=== PATIENT | female | born 1990 | race Caucasian/White ===

== ENCOUNTER → 2016-10-08 | Outpatient (CLI) | payer BC ==
[2016-10-08 19:06] LABS: CHLAM PCR NOT DETECTED (NOT DETECT)
== END ==
LOC: LAB 17:20
PROVIDERS: ATTEND Nurse Practitioner Acute Care
DX: R10.30 Lower abdominal pain, unspecified (principal)
CPT/HCPCS: 87210; 87491; 87591

== ENCOUNTER → 2017-07-12 | Outpatient (CLI) | payer BC | LOC: LAB 17:37 | PROVIDERS: ATTEND Nurse Practitioner Acute Care | DX: N89.8 Other specified noninflammatory disorders of vagina (principal); R10.84 Generalized abdominal pain | CPT/HCPCS: 87086; 87210; 87491; 87591 ==

== ENCOUNTER → 2017-09-24 | Outpatient (CLI) | payer BC ==
[2017-09-24 18:41] LABS: HEMATOCRIT 38.9 % (36.0-47.0); HEMOGLOBIN 12.8 g/dL (12.0-15.5); MEAN CORPUSCULAR HEMOGLOBIN 26.6 pg (27.0-33.4); MEAN CORPUSCULAR HGB CONC 32.8 g/dL (32.0-36.0); MEAN CORPUSCULAR VOLUME 81 fl (80-97); PLATELET COUNT 310 10^3/uL (150-450); RED BLOOD COUNT 4.81 10^6/uL (3.72-5.28); RED CELL DISTRIBUTION WIDTH 13.7 % (11.5-14.0); WHITE BLOOD COUNT 8.2 10^3/uL (4.0-10.5)
[2017-09-24 18:58] LABS: ALANINE AMINOTRANSFERASE 25 U/L (9-52); ALBUMIN 4.1 g/dL (3.5-5.0); ALKALINE PHOSPHATASE 46 U/L (38-126); ANION GAP 9 (5-19); ASPARTATE AMINO TRANSFERASE 20 U/L (14-36); BILIRUBIN,DIRECT 0.4 mg/dL (0.0-0.4); BILIRUBIN,TOTAL 0.9 mg/dL (0.2-1.3); BLOOD UREA NITROGEN 10 mg/dL (7-20); CALCIUM 9.3 mg/dL (8.4-10.2); CARBON DIOXIDE 27 mmol/L (22-30); CHLORIDE 102 mmol/L (98-107); GLUCOSE 103 mg/dL (75-110); IRON(TIBC) 26.3 ug/dL (37-170); POTASSIUM 3.6 mmol/L (3.6-5.0); SODIUM 138.2 mmol/L (137-145)
[2017-09-24 19:12] LABS: FREE T4 (FREE THYROXINE) 1.22 ng/dL (0.78-2.19)
[2017-09-24 19:26] LABS: THYROID STIMULATING HORMONE 0.66 uIU/mL (0.47-4.68)
[2017-09-24 19:30] LABS: ERYTHROCYTE SEDIMENTATION RATE 12 mm/hr (0-20)
[2017-09-24 19:47] LABS: C-REACTIVE PROTEIN < 5.0 mg/L (<10.0)
[2017-09-26 09:46] LABS: THYROGLOBULIN AB <1.0 IU/mL (0.0-0.9)
[2017-09-26 13:43] LABS: ANTINUCLEAR ANTIBODIES Negative (Negative)
== END ==
LOC: OD 17:28
PROVIDERS: ATTEND Physician Assistant
DX: F41.9 Anxiety disorder, unspecified (principal); K20.8 Other esophagitis; K21.9 Gastro-esophageal reflux disease without esophagitis; R25.2 Cramp and spasm
CPT/HCPCS: 36415; 80053; 82306; 82607; 83540; 83550; 83735; 84439; 84443; 85027; 85652; 86038; 86140; 86800

== ENCOUNTER 2018-04-07 18:18 | Emergency (ER) | payer SELFPAY ==
[2018-04-07 19:13] VITALS: BP 112/79
== END 2018-04-07 22:20 | disposition left against medical advice (07) ==
LOC: ER 18:18
DX: Z53.21 Procedure and treatment not carried out due to patient leaving prior to being seen by health care provider (principal); R10.9 Unspecified abdominal pain

== ENCOUNTER 2018-04-08 10:03 | Emergency (ER) | payer BC, OTHER ==
[2018-04-08] MEDS ORDERED: ONDANSETRON HCL INJ/PF 4 MG/2 ML SDV IV ONE (10:41)
[2018-04-08] MEDS ORDERED: NORMAL SALINE 1000 ML 1,000 ML IV ONE (10:41)
[2018-04-08] MEDS ORDERED: MORPHINE SULFATE 10 MG/ML INJ IV ONE (10:41)
--- NOTE | 2018-04-08 10:43 | ER Document Report ---
ED Medical Screen (RME) - General Chief Complaint: Abdominal Pain Stated Complaint: ABDOMINAL PAIN Time Seen by Provider: 04/08/18 10:31 Notes: Patient is a 27-year-old female that presents to the emergency department for chief complaint of right lower quadrant abdominal pain. Patient started having periumbilical pain that has now localized to her right lower quadrant. She was seen in an urgent care yesterday and had a urine sample done which she states was normal. She was referred to the emergency room yesterday for appendicitis evaluation. Patient states she was unable to come in last night but her pain has worsened overnight. She does endorse nausea with no emesis. ROS: GENERAL: Denies fever of chills CV: Denies chest pain PHYSICAL EXAMINATION: GENERAL: Well-appearing, well-nourished and in no acute distress. HEAD: Atraumatic, normocephalic. EYES: Pupils equal round extraocular movements intact, conjunctiva are normal. ENT: Nares patent NECK: Normal range of motion LUNGS: No respiratory distress Musculoskeletal: Normal range of motion NEUROLOGICAL: Normal speech, normal gait. PSYCH: Normal mood, normal affect. Abdominal: Right lower quadrant tenderness MDM: Patient seen and examined for rapid initial assessment. Vital signs reviewed. A comprehensive ED assessment and evaluation of the patient, analysis of test results and completion of the medical decision making process will be conducted by additional ED providers. TRAVEL OUTSIDE OF THE [place] IN LAST 30 DAYS: No - Related Data Allergies/Adverse Reactions: amoxicillin [From Augmentin] Allergy (Verified 04/08/18 10:04) cefdinir [From Omnicef] Allergy (Verified 04/08/18 10:04) cefixime [From Suprax] Allergy (Verified 04/08/18 10:04) ciprofloxacin [From Cipro] Allergy (Verified 04/08/18 10:04) clavulanic acid [From Augmentin] Allergy (Verified 04/08/18 10:04) clindamycin Allergy (Verified 04/08/18 10:04) Past Medical History - Social History Chew tobacco use (# tins/day): No Frequency of alcohol use: Occasional Drug Abuse: None Pulmonary Medical History: Reports: Hx Asthma Neurological Medical History: Reports: Hx Migraine Renal/ Medical History: Denies: Hx Peritoneal Dialysis Musculoskeltal Medical History: Reports Hx Musculoskeletal Deformity, Reports Hx Musculoskeletal Trauma Traumatic Medical History: Reports: Hx Fractures - Right arm Past Surgical History: Reports: Hx Oral Surgery - [place] teeth - Immunizations Hx Diphtheria, Pertussis, Tetanus Vaccination: Yes Physical Exam - Vital signs Vitals: Temp Pulse Resp BP Pulse Ox 97.5 F 69 16 112/81 100 04/08/18 10:08 04/08/18 10:08 04/08/18 10:08 04/08/18 10:08 04/08/18 10:08 Course - Vital Signs Vital signs: Temp Pulse Resp BP Pulse Ox 97.5 F 69 16 112/81 100 04/08/18 10:08 04/08/18 10:08 04/08/18 10:08 04/08/18 10:08 04/08/18 10:08 Doctor's Discharge - Discharge Referrals: DAISY WAGNER PA-C [Primary Care Provider] - Follow up as needed
--- NOTE | 2018-04-08 12:31 | ER Document Report ---
ED General - General Chief Complaint: Abdominal Pain Stated Complaint: ABDOMINAL PAIN Time Seen by Provider: 04/08/18 10:31 TRAVEL OUTSIDE OF THE [place] IN LAST 30 DAYS: No - HPI Notes: Patient is a 27-year-old female no significant past medical history who presents to the ED complaining of right lower quadrant abdominal pain that began yesterday. Patient states that the pain originally started periumbilical and then gradually moved her right lower quadrant. Patient states that she did have a urinalysis performed yesterday at an urgent care which was negative. Patient states that she does have associated nausea without any vomiting. She is otherwise able to eat and drink and ate cereal this morning at 7 AM. She is urinating normally and having normal bowel movements. No other vaginal discharge, odor, bleeding. Denies any headache, fever, URI, sore throat, chest pain, palpitations, syncope, cough, shortness of breath, wheeze, dyspnea, vomiting/diarrhea, urinary retention, dysuria, hematuria, or rash. - Related Data Allergies/Adverse Reactions: amoxicillin [From Augmentin] Allergy (Verified 04/08/18 10:04) cefdinir [From Omnicef] Allergy (Verified 04/08/18 10:04) cefixime [From Suprax] Allergy (Verified 04/08/18 10:04) ciprofloxacin [From Cipro] Allergy (Verified 04/08/18 10:04) clavulanic acid [From Augmentin] Allergy (Verified 04/08/18 10:04) clindamycin Allergy (Verified 04/08/18 10:04) Past Medical History - Social History Smoking Status: Never Smoker Chew tobacco use (# tins/day): No Frequency of alcohol use: Occasional Drug Abuse: None Family History: CAD, CVA, Hyperlipidemia, Hypertension, Malignancy, Thyroid Disfunction. denies: Arthritis, DM Patient has suicidal ideation: No Patient has homicidal ideation: No Pulmonary Medical History: Reports: Hx Asthma Neurological Medical History: Reports: Hx Migraine Renal/ Medical History: Denies: Hx Peritoneal Dialysis Musculoskeletal Medical History: Reports Hx Musculoskeletal Deformity, Reports Hx Musculoskeletal Trauma Traumatic Medical History: Reports: Hx Fractures - Right arm Past Surgical History: Reports: Hx Oral Surgery - [place] teeth - Immunizations Hx Diphtheria, Pertussis, Tetanus Vaccination: Yes Review of Systems - Review of Systems -: Yes All other systems reviewed and negative Physical Exam - Vital signs Vitals: Temp Pulse Resp BP Pulse Ox 97.5 F 69 16 112/81 100 04/08/18 10:08 04/08/18 10:08 04/08/18 10:08 04/08/18 10:08 04/08/18 10:08 - Notes Notes: PHYSICAL EXAMINATION: GENERAL: Well-appearing, well-nourished and in no acute distress. HEAD: Atraumatic, normocephalic. EYES: Pupils equal round and reactive to light, extraocular movements intact, sclera anicteric, conjunctiva are normal. ENT: Nares patent and without discharge. oropharynx clear without exudates. No tonsilar hypertrophy or erythema. Moist mucous membranes. NECK: Normal range of motion, supple without lymphadenopathy LUNGS: Breath sounds clear to auscultation bilaterally and equal. No wheezes rales or rhonchi. HEART: Regular rate and rhythm without murmurs, rubs, gallops. ABDOMEN: Soft, nondistended abdomen. no rebound. No masses appreciated. Normal bowel sounds present. No CVA tenderness bilaterally. + tenderness at McBurney point with minimal guard. No lower pelvic tenderness. Neg Judd. Musculoskeletal: FROM to passive/active. Strength 5+/5. Extremities: No cyanosis, clubbing, or edema b/l. Peripheral pulses 2+. Capillary refill less than 3 seconds. NEUROLOGICAL: Normal speech, normal gait. PSYCH: Normal mood, normal affect. SKIN: Warm, Dry, normal turgor, no rashes or lesions noted. Course - Re-evaluation Re-evalutation: 04/08/18 17:38 Patient is an afebrile, well-hydrated, 27-year-old female who presents to the ED with rt ovarian cyst. Vitals are acceptable without any significant tachycardia, tachypnea, or hypoxia. PE is otherwise unremarkable. She is nontoxic-appearing is tolerating p.o. without difficulties. CBC was unremarkable without any white count. CMP, lipase, urinalysis, hCG unremarkable. CT scan was unremarkable for any acute pathology and clearly visualized the appendix. TVUS showed an 11mm ovarian cyst, otherwise unremarkable. No further labs or imaging warranted at this time based on H&P. Low suspicion for acute appendicitis, bowel obstruction, acute cholecystitis, acute cholangitis, perforated diverticulitis, incarcerated hernia, pancreatitis , perforated ulcer, peritonitis, sepsis, pelvic inflammatory disease, ectopic , tubo-ovarian abscess, ovarian torsion, or other systemic emergent condition at this time. Patient is aware that her condition can change from initial presentation and she needs to monitor symptoms closely and seek medical attention if any acute changes. Rx for zofran. Conservative measures otherwise for symptoms. Appendicitis obs reviewed. Recheck with your PCM/ OBGYN in 5-7 days. Return to the ED with any worsening/concerning symptoms otherwise as reviewed in discharge. Patient is in agreement. - Vital Signs Vital signs: Temp Pulse Resp BP Pulse Ox 98.0 F 67 18 103/72 100 04/08/18 14:42 04/08/18 14:42 04/08/18 14:42 04/08/18 14:42 04/08/18 14:42 - Laboratory Result Diagrams: 04/08/18 12:37 04/08/18 12:37 Laboratory results interpreted by me: 04/08/18 04/08/18 04/08/18 11:12 12:37 12:37 MCH 26.1 L RDW 14.8 H Total Bilirubin 2.4 H Urine Ketones TRACE H Discharge - Discharge Clinical Impression: Right ovarian cyst, Right lower quadrant abdominal pain Condition: Stable Disposition: HOME, SELF-CARE Instructions: Observation for Appendicitis ([facility]), Ovarian Cyst ([facility]), Antinausea Medication ([facility]) Additional Instructions: Maintain fluid intake Tylenol/ibuprofen as needed Warm/cool compresses Return immediately if symptoms worsen F/u with your PCM/OBGYN in 5-7 days for a recheck Return to the ED with any development of PEREZ/fever, trouble with vision, eye redness, worsening pain, urethral discharge, urinary retention, blood in the urine, flank pain, abdominal pain, n/v, Chest Pain, shortness of breath, joint pains, trouble breathing, or any other worsening/concerning symptoms as needed otherwise. Prescriptions: Ondansetron [Zofran Odt 4 mg Tablet] 1 - 2 tab PO Q4H PRN #15 tab.rapdis PRN Reason: For Nausea/Vomiting Referrals: DAISY WAGNER PA-C [Primary Care Provider] - Follow up as needed [facility] [Provider Group] - Follow up in 1 week
[2018-04-08 13:25] LABS: APPEARANCE,URINE CLEAR; BILIRUBIN,URINE NEGATIVE (NEGATIVE); COLOR,URINE YELLOW; GLUCOSE, URINE NEGATIVE (NEGATIVE); KETONES,URINE TRACE mg/dL (NEGATIVE); LEUKOCYTE ESTERASE,URINE NEGATIVE (NEGATIVE); NITRITE,URINE NEGATIVE (NEGATIVE); PROTEIN,URINE NEGATIVE (NEGATIVE); URINE SPECIFIC GRAVITY 1.012; UROBILINOGEN,URINE NEGATIVE mg/dL (<2.0)
[2018-04-08 13:37] LABS: ABSOLUTE BASOPHILS # (AUTO) 0.1 10^3/uL (0.0-0.2); ABSOLUTE EOSINOPHILS # (AUTO) 0.2 10^3/uL (0.0-0.6); ABSOLUTE LYMPHOCYTES (AUTO) 2.1 10^3/uL (0.5-4.7); ABSOLUTE MONOCYTES (AUTO) 0.8 10^3/uL (0.1-1.4); ABSOLUTE NEUT (AUTO) 7.2 10^3/uL (1.7-8.2); BASOPHILS % (AUTO) 0.8 % (0-2); EOSINOPHILS % (AUTO) 1.8 % (0-6); HEMATOCRIT 39.7 % (36.0-47.0); HEMOGLOBIN 12.9 g/dL (12.0-15.5); LYMPHOCYTES % (AUTO) 20.3 % (13-45); MEAN CORPUSCULAR HEMOGLOBIN 26.1 pg (27.0-33.4); MEAN CORPUSCULAR HGB CONC 32.5 g/dL (32.0-36.0); MEAN CORPUSCULAR VOLUME 80 fl (80-97); MONOCYTES % (AUTO) 7.9 % (3-13); PLATELET COUNT 281 10^3/uL (150-450); RED BLOOD COUNT 4.95 10^6/uL (3.72-5.28); RED CELL DISTRIBUTION WIDTH 14.8 % (11.5-14.0); SEGMENTED NEUTROPHILS % (AUTO) 69.2 % (42-78); TOTAL CELLS COUNTED % (AUTO) 100 %; WHITE BLOOD COUNT 10.4 10^3/uL (4.0-10.5)
[2018-04-08 13:43] LABS: ALANINE AMINOTRANSFERASE 18 U/L (9-52); ALBUMIN 4.2 g/dL (3.5-5.0); ALKALINE PHOSPHATASE 48 U/L (38-126); ANION GAP 9 (5-19); ASPARTATE AMINO TRANSFERASE 26 U/L (14-36); BILIRUBIN,DIRECT 0.1 mg/dL (0.0-0.4); BILIRUBIN,TOTAL 2.4 mg/dL (0.2-1.3); BLOOD UREA NITROGEN 11 mg/dL (7-20); CALCIUM 9.5 mg/dL (8.4-10.2); CARBON DIOXIDE 26 mmol/L (22-30); CHLORIDE 104 mmol/L (98-107); GLUCOSE 82 mg/dL (75-110); LIPASE 113.1 U/L (23-300); POTASSIUM 4.7 mmol/L (3.6-5.0); SODIUM 138.5 mmol/L (137-145); TOTAL PROTEIN 7.7 g/dL (6.3-8.2)
--- NOTE | 2018-04-08 14:18 | RADIOLOGY REPORT (SQ) ---
EXAM DESCRIPTION: CT ABD/PELVIS WITH IV ORAL COMPLETED DATE/TIME: 04/08/2018 2:05 pm REASON FOR STUDY: RLQ pain COMPARISON: None. TECHNIQUE: CT scan of the abdomen and pelvis performed using helical scanning technique with dynamic intravenous contrast injection. Patient drank oral contrast. Images reviewed with lung, soft tissue , and bone windows. Reconstructed coronal and sagittal MPR images reviewed. Delayed images for evalua tion of the urinary system also acquired. All images stored on PACS. All CT scanners at this facility use dose modulation, iterative reconstruction, and/or weight based d osing when appropriate to reduce radiation dose to as low as reasonably achievable (ALARA). [facility]: Dose Right [facility]: CareDose [facility]: Dose Right [facility]: Teradose 4D [facility]: [employer] CONTRAST TYPE AND DOSE: contrast/concentration: Isovue 350.00 mg/ml; Total Contrast Delivered: 70.0 ml; Total Saline Delivered: 66.0 ml RENAL FUNCTION: Creatinine 0.5 RADIATION DOSE: CT Rad equipment meets quality standard of care and radiation dose reduction techniq ues were employed. CTDIvol: 6.3 - 8.4 mGy. DLP: 796 mGy-cm.. LIMITATIONS: None. FINDINGS: LOWER CHEST: No significant findings. No nodules or infiltrates. LIVER: Normal size. No masses. No dilated ducts. SPLEEN: Normal size. No focal lesions. PANCREAS: No masses. No significant calcifications. No adjacent inflammation or peripancreatic fluid collections. Pancreatic duct not dilated. GALLBLADDER: No identified stones by CT criteria. No inflammatory changes to suggest cholecystitis. ADRENAL GLANDS: No significant masses or asymmetry. RIGHT KIDNEY AND URETER: No solid masses. No significant calcifications. No hydronephrosis or hyd roureter. LEFT KIDNEY AND URETER: No solid masses. No significant calcifications. No hydronephrosis or hydr oureter. AORTA AND VESSELS: No aneurysm. No dissection. Renal arteries, SMA, celiac without stenosis. RETROPERITONEUM: No retroperitoneal adenopathy, hemorrhage or masses. BOWEL AND PERITONEAL CAVITY: Patient drank oral contrast. No CT evidence of bowel obstruction. No masses or inflammatory changes. No free fluid or peritoneal masses. APPENDIX: Normal. Best shown on coronal image 26 PELVIS: No mass. No free fluid. Normal bladder. Normal size female pelvic organs ABDOMINAL WALL: No masses. No hernias. BONES: No significant or acute findings. OTHER: No other significant finding. IMPRESSION: NO SIGNIFICANT OR ACUTE FINDING IN THE ABDOMEN OR PELVIS ON CT SCAN WITH IV CONTRAST. TECHNICAL DOCUMENTATION: JOB ID: [id number] Quality ID # [id number]: Final reports with documentation of one or more dose reduction techniques (e.g., Au tomated exposure control, adjustment of the mA and/or kV according to patient size, use of iterative reconstruction technique) 2010 [employer]- All Rights Reserved Reading location - IP/workstation name: [facility]
--- NOTE | 2018-04-08 17:40 | RADIOLOGY REPORT (SQ) ---
EXAM DESCRIPTION: U/S NON OB PEL TV W/DOPPLER COMPLETED DATE/TIME: 04/08/2018 5:20 pm REASON FOR STUDY: RLQ pain COMPARISON: None. TECHNIQUE: Dynamic and static grayscale images acquired of the pelvis via transvaginal approach and recorded on PACS. Additional selected color Doppler and spectral images recorded. LIMITATIONS: None. FINDINGS: UTERUS: Contour normal. No mass. ENDOMETRIAL STRIPE: No focal or generalized thickening. No masses. CERVIX: 4.1 cm. There is fluid in the endocervical canal. RIGHT OVARY AND DOPPLER: Normal size. No worrisome masses. 11 mm cyst. Normal arterial vascular rocio w without evidence for torsion. LEFT OVARY AND DOPPLER: Normal size. No worrisome masses. 2 cm dominant follicle. Normal arterial v ascular flow without evidence for torsion. FREE FLUID: None noted. OTHER: No other significant finding. MEASUREMENTS: UTERUS: 8.9 x 4.5 x 6.3 cm. ENDOMETRIAL STRIPE: 9 mm. RIGHT OVARY: 2.9 x 1.6 x 2 cm. LEFT OVARY: 3 x 2.5 x 2.5 cm. IMPRESSION: Normal study. There is fluid in the endocervical canal. TECHNICAL DOCUMENTATION: JOB ID: [id number] [employer]- All Rights Reserved Rev Reading location - IP/workstation name: [email or web address]
[2018-04-08] MEDS ORDERED: ASPIRIN 325 MG TABLET PO ONE (17:56)
[2018-04-08 18:11] VITALS: BP 101/60
== END 2018-04-08 18:11 | disposition home or self-care (01) ==
LOC: ER 10:03
DX: N83.201 Unspecified ovarian cyst, right side (principal); R10.31 Right lower quadrant pain; R11.0 Nausea
CPT/HCPCS: 99285; 96361; 96374; 36415; 83690; 85025; 81025; 80053; 81001; 76830; 93976; 74177; J2270; J2405; J7030

== ENCOUNTER 2019-01-19 20:24 | Emergency (ER) | payer OTHER ==
[2019-01-19] MEDS ORDERED: ONDANSETRON HCL INJ/PF 4 MG/2 ML SDV IV ONE (20:57)
[2019-01-19] MEDS ORDERED: FENTANYL CITRATE INJ/PF 100 MCG/2 ML AMPUL IV ONE (20:57)
--- NOTE | 2019-01-19 20:59 | ER Document Report ---
ED Medical Screen (RME) - General Chief Complaint: Abdominal Pain Stated Complaint: ABDOMINAL PAIN Time Seen by Provider: 01/19/19 20:50 Primary Care Provider: NIKKI FARIAS DO [Primary Care Provider] - Follow up as needed Notes: Patient is a 20-year-old female presents to the emergency department with significant right lower quadrant abdominal pain. States pain started this morning and has progressed throughout the day. Patient is also complaining of generalized nausea but is denying any vomiting. She is denying any diarrhea or fevers. Patient denies dysuria or vaginal discharge. Patient states she is no history of abdominal surgeries. GENERAL: Alert, interacts well. Appears in acute distress. ABDOMEN: Soft, positive McBurney's point tenderness.. Non-distended. Bowel sounds present in all 4 quadrants. I have greeted and performed a rapid initial assessment of this patient. A comprehensive ED assessment and evaluation of the patient, analysis of test results and completion of the medical decision making process will be conducted by additional ED providers. I have specifically instructed the patient or family members with the patient to immediately return to any nursing staff should anything change in the patient's condition or with their chief complaint. This medical record was dictated with voice recognizing software. There may be grammatical, syntax errors that are unintended. TRAVEL OUTSIDE OF THE [place] IN LAST 30 DAYS: No - Related Data Allergies/Adverse Reactions: amoxicillin [From Augmentin] Allergy (Verified 04/08/18 10:04) cefdinir [From Omnicef] Allergy (Verified 04/08/18 10:04) cefixime [From Suprax] Allergy (Verified 04/08/18 10:04) ciprofloxacin [From Cipro] Allergy (Verified 04/08/18 10:04) clavulanic acid [From Augmentin] Allergy (Verified 04/08/18 10:04) clindamycin Allergy (Verified 04/08/18 10:04) doxycycline Allergy (Verified 01/19/19 20:49) Past Medical History - Social History Chew tobacco use (# tins/day): No Frequency of alcohol use: Rare Drug Abuse: None Pulmonary Medical History: Reports: Hx Asthma Neurological Medical History: Reports: Hx Migraine Renal/ Medical History: Denies: Hx Peritoneal Dialysis Musculoskeltal Medical History: Reports Hx Musculoskeletal Deformity, Reports Hx Musculoskeletal Trauma Traumatic Medical History: Reports: Hx Fractures - Right arm Past Surgical History: Reports: Hx Oral Surgery - [place] teeth - Immunizations Hx Diphtheria, Pertussis, Tetanus Vaccination: Yes Physical Exam - Vital signs Vitals: Temp Pulse Resp BP Pulse Ox 99.2 F 93 20 110/73 100 01/19/19 20:43 01/19/19 20:43 01/19/19 20:43 01/19/19 20:43 01/19/19 20:43 Course - Vital Signs Vital signs: Temp Pulse Resp BP Pulse Ox 99.2 F 93 20 110/73 100 01/19/19 20:43 01/19/19 20:43 01/19/19 20:43 01/19/19 20:43 01/19/19 20:43 Doctor's Discharge - Discharge Referrals: NIKKI FARIAS DO [Primary Care Provider] - Follow up as needed
[2019-01-19 21:32] LABS: ABSOLUTE BASOPHILS # (AUTO) 0.1 10^3/uL (0.0-0.2); ABSOLUTE EOSINOPHILS # (AUTO) 0.2 10^3/uL (0.0-0.6); ABSOLUTE LYMPHOCYTES (AUTO) 2.7 10^3/uL (0.5-4.7); ABSOLUTE MONOCYTES (AUTO) 1.4 10^3/uL (0.1-1.4); ABSOLUTE NEUT (AUTO) 11.9 10^3/uL (1.7-8.2); BASOPHILS % (AUTO) 0.4 % (0-2); EOSINOPHILS % (AUTO) 1.2 % (0-6); HEMATOCRIT 41.3 % (36.0-47.0); HEMOGLOBIN 13.3 g/dL (12.0-15.5); LYMPHOCYTES % (AUTO) 16.8 % (13-45); MEAN CORPUSCULAR HEMOGLOBIN 24.3 pg (27.0-33.4); MEAN CORPUSCULAR HGB CONC 32.2 g/dL (32.0-36.0); MEAN CORPUSCULAR VOLUME 75 fl (80-97); MONOCYTES % (AUTO) 8.7 % (3-13); PLATELET COUNT 279 10^3/uL (150-450); RED BLOOD COUNT 5.47 10^6/uL (3.72-5.28); RED CELL DISTRIBUTION WIDTH 15.9 % (11.5-14.0); SEGMENTED NEUTROPHILS % (AUTO) 72.9 % (42-78); TOTAL CELLS COUNTED % (AUTO) 100 %; WHITE BLOOD COUNT 16.3 10^3/uL (4.0-10.5)
[2019-01-19 22:02] LABS: AMORPHOUS SEDIMENT,URINE TRACE /HPF; APPEARANCE,URINE CLOUDY; BILIRUBIN,URINE NEGATIVE (NEGATIVE); COLOR,URINE YELLOW; GLUCOSE, URINE NEGATIVE (NEGATIVE); KETONES,URINE NEGATIVE (NEGATIVE); LEUKOCYTE ESTERASE,URINE NEGATIVE (NEGATIVE); NITRITE,URINE NEGATIVE (NEGATIVE); PROTEIN,URINE NEGATIVE (NEGATIVE); URINE SPECIFIC GRAVITY 1.013; UROBILINOGEN,URINE NEGATIVE mg/dL (<2.0)
[2019-01-19] MEDS ORDERED: HYDROMORPHONE HCL INJ/PF 2 MG/ML AMPULE IV ONE (22:21)
[2019-01-19] MEDS ORDERED: NORMAL SALINE 1000 ML 1,000 ML IV ONE (22:22)
[2019-01-19 22:27] LABS: ALANINE AMINOTRANSFERASE 14 U/L (9-52); ALKALINE PHOSPHATASE 54 U/L (38-126); ANION GAP 9 (5-19); ASPARTATE AMINO TRANSFERASE 21 U/L (14-36); BILIRUBIN,DIRECT 0.1 mg/dL (0.0-0.4); BILIRUBIN,TOTAL 1.7 mg/dL (0.2-1.3); BLOOD UREA NITROGEN 11 mg/dL (7-20); CALCIUM 9.5 mg/dL (8.4-10.2); CARBON DIOXIDE 25 mmol/L (22-30); CHLORIDE 106 mmol/L (98-107); GLUCOSE 120 mg/dL (75-110); LIPASE 98.3 U/L (23-300); POTASSIUM 3.8 mmol/L (3.6-5.0); SODIUM 139.7 mmol/L (137-145); TOTAL PROTEIN 6.8 g/dL (6.3-8.2)
[2019-01-20] MEDS ORDERED: DIPHENHYDRAMINE HCL 50 MG/ML VIAL IV ONE ×2 (00:32→00:33)
[2019-01-20] MEDS ORDERED: METHYLPREDNISOLONE INJ 125 MG/2 ML SDV IV ONE (00:33)
--- NOTE | 2019-01-20 00:35 | ER Document Report ---
ED General - General Chief Complaint: Abdominal Pain Stated Complaint: ABDOMINAL PAIN Time Seen by Provider: 01/19/19 20:50 Primary Care Provider: NIKKI FARIAS DO [Primary Care Provider] - 01/21/19 Notes: Patient is a pleasant 20-year-old female presents with complaint of right lower quadrant dental pain started at 2:30 in the morning. She came to the ER she continued have pain that was worsening. No fevers. Some nausea. No vomiting. No diarrhea. No other complaints at this time. She was last sexually active 2 years ago. No abnormal vaginal discharge or bleeding. No dysuria. TRAVEL OUTSIDE OF THE [place] IN LAST 30 DAYS: No - Related Data Allergies/Adverse Reactions: amoxicillin [From Augmentin] Allergy (Verified 04/08/18 10:04) cefdinir [From Omnicef] Allergy (Verified 04/08/18 10:04) cefixime [From Suprax] Allergy (Verified 04/08/18 10:04) ciprofloxacin [From Cipro] Allergy (Verified 04/08/18 10:04) clavulanic acid [From Augmentin] Allergy (Verified 04/08/18 10:04) clindamycin Allergy (Verified 04/08/18 10:04) doxycycline Allergy (Verified 01/19/19 20:49) Past Medical History - Social History Smoking Status: Never Smoker Chew tobacco use (# tins/day): No Frequency of alcohol use: Rare Drug Abuse: None Family History: CAD, CVA, Hyperlipidemia, Hypertension, Malignancy, Thyroid Disfunction. denies: Arthritis, DM Patient has suicidal ideation: No Patient has homicidal ideation: No Pulmonary Medical History: Reports: Hx Asthma Neurological Medical History: Reports: Hx Migraine Renal/ Medical History: Denies: Hx Peritoneal Dialysis Musculoskeletal Medical History: Reports Hx Musculoskeletal Deformity, Reports Hx Musculoskeletal Trauma Traumatic Medical History: Reports: Hx Fractures - Right arm Past Surgical History: Reports: Hx Oral Surgery - [place] teeth - Immunizations Hx Diphtheria, Pertussis, Tetanus Vaccination: Yes Review of Systems - Review of Systems Notes: My Normal Review Basic REVIEW OF SYSTEMS: CONSTITUTIONAL : Denies fever, chills, or sweats. Denies recent illness. EENT: Denies eye, ear, throat, or mouth pain or symptoms. Denies nasal or sinus congestion. CARDIOVASCULAR: Denies chest pain. RESPIRATORY: Denies cough, cold, or chest congestion. Denies shortness of breath, difficulty breathing, or wheezing. GASTROINTESTINAL: Right lower quadrant abdominal pain. Nausea GENITOURINARY: Denies difficulty urinating, painful urination, burning, frequency, or blood in urine. MUSCULOSKELETAL: Denies neck or back pain or joint pain or swelling. SKIN: Denies rash or skin lesions. NEUROLOGICAL: Denies altered mental status or loss of consciousness. Denies headache. Denies weakness or paralysis or loss of use of either side. Denies problems with gait or speech. Denies sensory or motor loss. ALL OTHER SYSTEMS REVIEWED AND NEGATIVE. Physical Exam - Vital signs Vitals: Temp Pulse Resp BP Pulse Ox 99.2 F 93 20 110/73 100 01/19/19 20:43 01/19/19 20:43 01/19/19 20:43 01/19/19 20:43 01/19/19 20:43 - Notes Notes: General Appearance: Well nourished, alert, cooperative, no acute distress, moderate obvious discomfort. Vitals: reviewed, See vital signs table. Head: no swelling or tenderness to the head Eyes: PERRL, EOMI, Conjuctiva clear Mouth: No decreasd moisture Lungs: No wheezing, No rales, No rhonci, No accessory muscle use, good air exchange bilaterally. Heart: Normal rate, Regular rythm, No murmur, no rub Abdomen: Normal BS, soft, No rigidity, moderate right lower quadrant, tenderness to palpation. Remainder of abdomen is nontender. Positive Rovsing sign. No guarding, no rebound, no abdominal masses, no organomegaly Extremities: strength 5/5 in all extremities, good pulses in all extremities, no swelling or tenderness in the extremities, no edema. Skin: warm, dry, appropriate color, no rash Neuro: speech clear, oriented x 3, normal affect, responds appropriately to questions. Course - Re-evaluation Re-evalutation: 01/20/19 00:34 Receiving the Dilaudid and drinking oral contrast patient had hives-like rash over her back. She has some itching there. No difficulty breathing or swallowing. We will give her some Benadryl and Solu-Medrol to help with what appears to be allergic reaction. Patient is to receive a CT scan also suspect she likely has appendicitis however she also has history of ovarian cysts and other issues that could also mimic appendicitis and therefore I feel she needs a CT scan to help delineate exactly what is going on. Patient is agreeable with this. 01/20/19 01:47 CT scan was not able to visualize the appendix. There is no inflammation in the right lower quadrant. So concerned that patient could have appendicitis however I feel a need to rule out other possible etiologies before calling the surgeon. Therefore have ordered a transvaginal ultrasound to evaluate the ovary on the right side. Patient still has pain to palpation right lower quadrant. She still has pain on the right side when I push on the left side. I explained plan to the patient and she is agreeable to it. 01/20/19 04:12 Patient's pain is almost completely resolved. On reevaluation she has just very slight pain to palpation that is mainly over the right side of the suprapubic region. She says she is feeling improved. Her ultrasound does not show any evidence of ovarian torsion or any concerning findings. She has just very small cyst on her ovary. Because of the intensity of her pain when she first arrived and the leukocytosis I did call and speak with the surgeon, Dr. Neves. I reviewed the case with him. He did review the patient's CT scan and says that he sees no evidence of any inflammation or swelling in the right lower quadrant on scan. He says that he would not take this patient to surgery at this time and does not believe it is appendicitis based on his review. I talked to the patient and explained the findings. Dr. Neves did recommend testing for STDs. I did go back and speak to the patient but she says she has not been sexually active in over 2 years. The likelihood of her having PID, gonorrhea, chlamydia is basically 0 if she has not been active for 2 years. I therefore have canceled the gonorrhea and Chlamydia testing. I informed the patient that we will discharge her home however if she isstill having any pain over the course the next 12 to 24 hours she should return to the ER for reevaluation. I informed her that sometimes very early appendicitis can sometimes not present on CT scan. I informed her this is rare however it does occur and therefore if she still having any pain after 12 to 24 hours she must return for reevaluation. If she is completely pain-free feeling well then she does not have to return. Patient agrees with plan and will be discharged home. Dictation of this chart was performed using voice recognition software; therefore, there may be some unintended grammatical errors. 01/20/19 04:33 - Vital Signs Vital signs: Temp Pulse Resp BP Pulse Ox 98.4 F 76 16 93/55 L 96 01/20/19 04:16 01/20/19 04:16 01/20/19 04:16 01/20/19 04:16 01/20/19 04:16 - Laboratory Result Diagrams: 01/19/19 21:13 01/19/19 21:45 Laboratory results interpreted by me: 01/19/19 01/19/19 21:13 21:45 WBC 16.3 H RBC 5.47 H MCV 75 L MCH 24.3 L RDW 15.9 H Absolute Neutrophils 11.9 H Glucose 120 H Total Bilirubin 1.7 H Discharge - Discharge Clinical Impression: Abdominal pain Qualifiers: Abdominal location: right lower quadrant Qualified Code(s): R10.31 - Right lower quadrant pain Condition: Good Disposition: HOME, SELF-CARE Additional Instructions: Your CT scan did not show evidence of appendicitis. Your case was discussed with the surgeon and he also reviewed the CT scan and did not see any evidence of appendicitis. On very rare occasions sometimes appendicitis will not initially show up on CT scan when it is early. Because of this we want you to have a low threshold to return to the ER for reevaluation in 12 to 24 hours if you are still having any pain. You do not have to return to the ER if you are completely pain-free and feel well. Please return to the ER immediately if you have worsening pain, fevers, vomiting, or feel like you are worsening in any way. Forms: Return to Work Referrals: NIKKI FARIAS DO [Primary Care Provider] - 01/21/19
[2019-01-20] MEDS ORDERED: FENTANYL CITRATE INJ/PF 100 MCG/2 ML AMPUL IV ONE (00:57)
--- NOTE | 2019-01-20 01:27 | RADIOLOGY REPORT (SQ) ---
EXAM: CT abdomen and pelvis with IV contrast CLINICAL DATA: 28-year-old female with right lower quadrant abdominal pain TECHNICAL DATA: Axial CT imaging of the abdomen and pelvis was performed following the administration of intravenous contrast.. Sagittal and coronal reconstructed images were then performed. The CT study is performed according to ALARA (as low as reasonably achievable) or ALARA/IMAGE GENTLY, with automatic adjustment of mA and/or kV according to patient size. Performed on: 01/20/2019 at 12:55 AM. Comparison: 04/08/2018 FINDINGS: Lung bases: The lung bases are clear. Liver:The liver is normal in size and configuration. No focal hepatic abnormalities are identified. Liver attenuation is within normal limits. Spleen: The spleen is top normal in size. The spleen is normal in configuration and attenuation. Gallbladder and bile duct: The gallbladder is well distended and unremarkable. There is no biliary ductal dilatation. Pancreas: The pancreas is grossly normal in size and configuration. Adrenal Glands:The adrenal glands are normal in size and configuration. Kidneys:The kidneys are normal in size and configuration. There is no evidence of hydronephrosis. There is no evidence of nephrolithiasis. No definite solid or cystic renal mass lesions are identified. Stomach:The stomach is grossly normal. There is no definite hiatal hernia. Bowel:The bowel gas pattern is non specific and non obstructive. Appendix: The appendix is not clearly visualized. There is no CT evidence to suggest acute appendicitis. Free air:There is no evidence of free air. Free fluid: There is no evidence of free fluid. Vasculature: The aorta is normal in caliber and contour. The inferior vena cava is grossly unremarkable. Lymphadenopathy: No pathologic lymphadenopathy is identified. Bladder: The bladder is well distended and smooth in contour. Reproductive: The uterus is grossly within normal limits. Bones: No acute osseous abnormalities are identified. Soft tissues: No focal soft tissue abnormalities are identified. IMPRESSION: 1. No evidence of acute intra-abdominal or intrapelvic pathology. Overall, no significant interval change when compared to the prior study. 2. The spleen is top normal in size. 3. The appendix is not well visualized on this examination. There is no CT evidence to suggest acute appendicitis.
--- NOTE | 2019-01-20 03:50 | RADIOLOGY REPORT (SQ) ---
EXAM: Ultrasound pelvis complete CLINICAL DATA: 28-year-old female with right lower abdominal pain; the patient's LMP was 01/12/2019. TECHNICAL DATA: Ultrasound imaging of the pelvis was performed transabdominally and endovaginally on 01/20/2019 at 2:55 AM. COMPARISONS: CT abdomen and pelvis performed on 01/20/2019 and prior pelvic ultrasound performed on 04/08/2018 FINDINGS: The uterus is normal in size, shape and echogenicity and measures 9.1 x 5.6 x 4.0 cm. The endometrial complex measures 0.8 cm in thickness. There is no endometrial fluid. The right ovary measures 3.0 x 1.6 x 2.5 cm. The right ovary contains normal follicles. Doppler imaging demonstrates normal pulsed and color Doppler flow. There is a dominant follicle measuring 1.3 x 1.1 x 1.0 cm. No follow-up imaging is recommended. The left ovary measures 3.8 x 2.5 x 2.3 cm. The left ovary contains normal follicles. Doppler imaging demonstrates normal pulsed and color Doppler flow. There is a dominant follicle measuring 1.9 x 2.1 x 1.5 cm and an adjacent follicle measuring 1.6 x 1.3 x 1.6 cm. No follow-up imaging is recommended. There is no free fluid in the pelvis. IMPRESSION: 1. Normal pelvic ultrasound. 2. No acute abnormalities are identified at this time.
[2019-01-20 04:17] VITALS: BP 93/55
== END 2019-01-20 04:42 | disposition home or self-care (01) ==
LOC: ER 20:24
DX: R10.31 Right lower quadrant pain (principal); K08.9 Disorder of teeth and supporting structures, unspecified; Z88.0 Allergy status to penicillin; Z88.3 Allergy status to other anti-infective agents
CPT/HCPCS: 96376; 99284; 96361; 96374; 96375; 36415; 83690; 85025; 81025; 80053; 81001; 76830; 93976; 74177; J1200; J3010 ×2; J2930; J1170; J2405; J7030